=== PATIENT | male | born 1980 | race African-American/Black ===

== ENCOUNTER 2022-01-24 08:50 | Emergency (ER) | payer OTHER ==
[~2022-01-24] VITALS: Ht 180.3 cm; Wt 128.3 kg
--- NOTE | 2022-01-24 09:28 | PHYS DOC ---
Past Medical History Past Surgical History: No Surgical History General Adult EDM: Chief Complaint: LOWER BACK PAIN OR INJURY HPI: HPI: Patient is a 41-year-old male who presents to the emergency department concerning flareup of his chronic back pains. Patient reports he fell off a porch 2 years ago and suffered a T3 and T7 spine fracture, was seen at [facility] at that time. Patient reports since then he has been treating with [id number] Tylenol and/or Motrin. States he no longer has a primary care physician because he no longer has insurance. Patient reports he does not have any pain medications at home to help him with his pain. Patient reports he has not taken pain medications for several weeks now, reports his back pain flared up approximately 1 month ago with the severe warm and cold weather changes. Currently reports a 8 out of 10 pain without radiation. Patient reports his back pains flareup with hot and cold weather changes. Denies new injury to his back. Patient reports he mainly hurts near his T7 area, denies numbness or tingling to his extremities. Patient denies difficulty walking, denies history of falls, dizziness, syncopal or near syncopal episodes, denies loss of bowel or bladder, denies urinary retention, denies numbness or tingling to his genitals. Patient denies chest pains, shortness of breath, chest or nasal congestion. Patient denies recent fever or chills. Patient denies a history of IV drug abuse or use, cigarette smoking, alcohol use occasionally, denies illicit drug use.patient denies other physical complaints or physical concerns. Review of Systems: Review of Systems: 14 body systems of review of systems have been reviewed. See HPI for pertinent positives and negative responses, otherwise all other systems are negative, nonpertinent or noncontributory. Constitutional: Negative except as outlined in HPI above. Skin: Negative except as outlined in HPI above. Eyes: Negative except as outlined in HPI above. HENT: Negative except as outlined in HPI above. Respiratory: Negative except as outlined in HPI above. Cardiovascular: Negative except as outlined in HPI above. GI: Negative except as outlined in HPI above. : Negative except as outlined in HPI above. Musculoskeletal: Negative except as outlined in HPI above. Integument: Negative except as outlined in HPI above. Neurologic: Negative except as outlined in HPI above. Endocrine: Negative except as outlined in HPI above. Lymphatic: Negative except as outlined in HPI above. Psychiatric: Negative except as outlined in HPI above. Heart Score: C/O Chest Pain: No Risk Factors: Risk Factors: DM, Current or recent (<one month) smoker, HTN, HLP, family history of CAD, obesity. Risk Scores: Score 0 - 3: 2.5% MACE over next 6 weeks - Discharge Home Score 4 - 6: 20.3% MACE over next 6 weeks - Admit for Clinical Observation Score 7 - 10: 72.7% MACE over next 6 weeks - Early Invasive Strategies Allergies: Allergies: Allergies Coded Allergies Type Severity Reaction Last Updated Verified No Known Drug Allergies 01/24/22 No Physical Exam: PE: Constitutional: Well developed, well nourished, no acute distress, non-toxic appearance. 41-year-old male in no apparent distress. HENT: Normocephalic, atraumatic. Eyes: Conjunctiva normal, no discharge. Neck: Normal range of motion, no stridor. Cardiovascular: No cyanosis appreciated, distal cap refill less than 2 seconds. Lungs & Thorax: Patient is in no respiratory distress, no audible adventitious lung sounds appreciated. Abdomen: Nontender, no abnormalities noted. Skin: Warm, dry, no erythema, no rash. Back: No deformities appreciated, no crepitus appreciated, no skin discoloration appreciated, there are no step-offs, tenderness near T7 of spine area without erythema, induration, swelling. Extremities: No tenderness, no cyanosis, no clubbing, ROM intact, no edema. 5/5 motor strength with hip flexion, knee flexion,extension, knee adduction, plantar/dorsiflexion at the ankle, and dorsiflexion of the toe bilaterally. Neurologic: Alert and oriented X 3, normal motor function, normal sensory function, no focal deficits noted. Psychologic: Affect normal, judgement normal, mood normal. Current Patient Data: Vital Signs: Vital Signs Date Time Temp Pulse Resp B/P (MAP) Pulse Ox O2 Delivery O2 Flow Rate FiO2 01/24/22 08:51 98.2 88 22 166/81 (109) 99 Room Air 98.2 EKG: EKG: [] Radiology/Procedures: Radiology/Procedures: [] Course & Med Decision Making: Course & Med Decision Making Pertinent Labs and Imaging studies reviewed. (See chart for details) 41-year-old male, vital signs reviewed, presents emergency department concerning flareup of chronic back pain from old T3 T7 spine fracture from 2 years ago. Physical examination consistent with chronic back pain, patient has intact 5/5 motor strength with hip flexion, knee flexion,extension, knee adduction, plantar/dorsiflexion at the ankle, and dorsiflexion of the toe bilaterally. Additionally there was no hx of IVDU, Immunosuppression, cancer, fever/chills, saddle anesthesia, bowel/bladder incontinence/retention, or trauma that would necessitate emergent imaging. Will give Toradol IM injection for chronic pain, give primary care follow-up information list, discussed with patient using [id number] NSAIDs or Tylenol for ongoing back discomfort, strict follow-up with primary care soon, return to ER precautions and concerns were reviewed. Patient gave verbal understanding of and is amenable to ED discharge planning. Discussed with the patient all findings and diagnostic testing as well as the need to follow-up with their primary care provider for further evaluation and treatment or return to the ED if any new or worsening symptoms. Strict return precautions were also discussed at length, the patient voiced understanding and agreement with the discharge planning. The patient was nontoxic in appearance, in no apparent distress, and hemodynamically stable at the time of disposition. Esmer Disclaimer: Esmer Disclaimer: This electronic medical record was generated, in whole or in part, using a voice recognition dictation system. Departure Departure Impression: Primary Impression: Chronic back pain Qualified Codes: M54.6 - Pain in thoracic spine; G89.29 - Other chronic pain Disposition: 01 HOME / SELF CARE / HOMELESS Condition: GOOD Patient Instructions: Chronic Back Pain Additional Instructions: You were seen today in the emergency department for a flareup of your chronic back pain stemming from your old T3 and T7 fractures from 2 years ago. You were given 60 mg IM injection of Toradol for pain. I have prescribed for you pain medications, please take as directed for flareup of chronic back pains, I have attached a list of area healthcare providers and clinics for you to establish primary care with. Please call today for an appointment for evaluation and management of ongoing back pains. Return to the emergency department for worsening symptoms or other concerns. Thank you for visiting our Emergency Department. It was a pleasure taking care of you today in the emergency department and we appreciate you trusting us with your care. If any additional problems come up don't hesitate to return to visit us. Please follow up with your primary care provider so they can plan additional care if needed and know about the problem that you had. If symptoms worsen come back to the Emergency Department. Any concerning symptoms that start such as chest pain, shortness of air, weakness or numbness on one side of the body, running high fevers or any other concerning symptoms return to the ER. Scripts Ibuprofen (IBUPROFEN) 600 Mg Tablet 600 MG PO PRN Q6HRS PRN for INFLAMMATION, #30 TAB 0 Refills Prov: OLE ENRIQUEZ APRN 01/24/22 OLE ENRIQUEZ APRN Jan 24, 2022 09:28
[2022-01-24] MEDS ORDERED: KETOROLAC 60 MG/2 ML VIAL. IM ONE (09:30)
[2022-01-24] MEDS ORDERED: IBUP-1007 PO (09:37)
[2022-01-24 09:49] VITALS: BP 146/90
== END 2022-01-24 10:10 | disposition home or self-care (01) ==
LOC: ER 08:50
DX: G89.29 Other chronic pain (principal); M54.6 Pain in thoracic spine; G89.11 Acute pain due to trauma; W18.39XA Other fall on same level, initial encounter; Y93.89 Activity, other specified; Y92.89 Other specified places as the place of occurrence of the external cause; Y99.8 Other external cause status
CPT/HCPCS: 96372; 99283; J1885